=== PATIENT | male | born 1940 | race Caucasian/White ===

== ENCOUNTER 2020-10-12 10:05 | Outpatient (CLI) | payer MEDICARE, BC ==
[~2020-10-12 10:05] MED LIST: FERRIC CARBOXYMALTOSE 750 MG in NORMAL SALINE 250 ML IV PRN
[2020-10-12 10:10] VITALS: BP 141/66
== END 2020-10-12 11:00 | disposition home or self-care (01) ==
LOC: II 10:05 → 5TH 10:06 → II 11:00
PROVIDERS: ATTEND Internal Medicine Nephrology
DX: D50.8 Other iron deficiency anemias (principal)
CPT/HCPCS: 96374; J7050; J1439

== ENCOUNTER 2020-10-19 09:58 | Outpatient (CLI) | payer MEDICARE, BC ==
[~2020-10-19 09:58] MED LIST changes: +FERRIC CARBOXYMALTOSE 750 MG in NORMAL SALINE 100 ML IV PRN
[2020-10-19 10:08] VITALS: BP 133/70
== END 2020-10-19 11:30 | disposition home or self-care (01) ==
LOC: II 09:58 → 5TH 10:00 → II 11:30
PROVIDERS: ATTEND Internal Medicine Nephrology
DX: D50.8 Other iron deficiency anemias (principal)
CPT/HCPCS: 96365; J1439; J7050